=== PATIENT | male | born 1955 | race Caucasian/White ===

== ENCOUNTER 2023-03-26 11:35 | Emergency (ER) | payer MEDICARE, OTHER ==
[2023-03-26] MEDS ORDERED: Sodium Chloride 0.9% 10 ML Syringe FLUSH PRN ×2 (13:46→14:58)
[2023-03-26 14:19] LABS: BASOPHILS ABSOLUTE AUTO 0.04 K/mm3 (0.01-0.08); BASOPHILS PERCENT AUTO 0.6 % (0.1-1.2); EOSINOPHILS ABSOLUTE AUTO 0.17 K/mm3 (0.04-0.54); EOSINOPHILS PERCENT AUTO 2.7 (0.8-7.0); HEMATOCRIT 41.2 % (40.1-51.0); HEMOGLOBIN 13.5 gm/dl (13.7-17.5); IMMATURE GRAN ABSOLUTE AUTO 0.03 K/mm3 (0.00-0.10); IMMATURE GRAN PERCENT AUTO 0.5 % (<=1.0); LYMPHOCYTES ABSOLUTE AUTO 1.17 K/mm3 (1.32-3.57); LYMPHOCYTES PERCENT AUTO 18.8 % (21.8-53.1); MEAN CORPUSCULAR HEMOGLOBIN 31.2 pg (25.7-32.2); MEAN CORPUSCULAR HGB CONC 32.8 g/dl (32.2-35.5); MEAN CORPUSCULAR VOLUME 95.2 fl (79.0-92.2); MONOCYTES ABSOLUTE AUTO 0.44 K/mm3 (0.30-0.82); MONOCYTES PERCENT AUTO 7.1 % (5.3-12.2); NEUTROPHILS ABSOLUTE AUTO 4.36 K/mm3 (1.78-5.38); NEUTROPHILS PERCENT AUTO 70.3 % (34.0-67.9); PLATELET COUNT,PLT 212 K/mm3 (163-337); RED BLOOD CELL COUNT 4.33 M/mm3 (4.63-6.08); WHITE BLOOD CELL COUNT,WBC 6.21 K/mm3 (4.23-9.07)
[2023-03-26 14:28] LABS: INR 0.97; PROTHROMBIN TIME 10.4 SECONDS (9.7-12.0)
[2023-03-26 14:29] LABS: PTT,PARTIAL THROMBOPLSTIN TIME 26.5 SECONDS (21.7-31.4)
[2023-03-26 14:37] LABS: ALANINE AMINOTRANSFERASE,ALT 65 U/L (16-63); ALBUMIN 3.7 g/dl (3.4-5.0); ALKALINE PHOSPHATASE 119 U/L (46-116); ANION GAP 9.9 (5-15); ASPARTATE AMNIOTRANSFERASE,AST 37 U/L (15-37); BILIRUBIN TOTAL 1.5 mg/dL (0.2-1.0); BLOOD UREA NITROGEN,BUN 20 mg/dL (7-18); BUN/CREATININE RATIO 16.7 (14-18); CALCIUM 8.6 mg/dL (8.5-10.1); CARBON DIOXIDE,CO2 28 mEq/L (21-32); CHLORIDE,CL 101 mEq/L (98-107); CREATININE 1.2 mg/dL (0.7-1.3); EST CRCL DRUG DOSING (CG) 72.37 mL/min; ESTIMATED GFR 67 mL/min (>60); GLUCOSE RANDOM 126 mg/dL (70-99); POTASSIUM,K 3.9 mEq/L (3.5-5.1); PROTEIN TOTAL,TP 7.4 g/dl (6.4-8.2); SODIUM,NA 135 mEq/L (136-145)
[2023-03-26 14:38] LABS: TROPONIN I HIGH SENSITIVITY < 4 pg/mL (<=76)
[2023-03-26] MEDS ORDERED: Iopamidol 755 Mg/ML 100 ML Bottle IVPUSH ONE ×2 (14:58→17:03)
[2023-03-26] MEDS ORDERED: Sodium Chloride 0.9% 45 ML IV SCH (15:00)
[2023-03-26] MEDS ORDERED: Sodium Chloride 0.9% 100 ML IV SCH (17:15)
[2023-03-26] MEDS ORDERED: Heparin Sodium 5,000 Units/ML Vial IVPUSH ONE (17:25)
[2023-03-26] MEDS ORDERED: Heparin Sodium/D5W 25,000 UNITS/500 ML BAG IV SCH (17:30)
== END 2023-03-26 19:15 ==
LOC: JD.ED 11:35
DX: I82.411 Acute embolism and thrombosis of right femoral vein (principal); I82.431 Acute embolism and thrombosis of right popliteal vein; I26.94 Multiple subsegmental thrombotic pulmonary emboli without acute cor pulmonale; M79.89 Other specified soft tissue disorders
CPT/HCPCS: 36415; 71275; 74177; 80053; 83880; 84484; 85025; 85379; 85610; 85730; 93005; 93971; 96365; 99285; J1644; J3490; Q9967; 93010